=== PATIENT | female | born 1985 | race Caucasian/White ===

== ENCOUNTER 2017-05-15 18:02 | Emergency (ER) | payer OTHER, MEDICAID | END 2017-05-15 18:37 | disposition home or self-care (01) | LOC: E/R 18:02 | DX: R22.32 Localized swelling, mass and lump, left upper limb (principal) | CPT/HCPCS: 99283; Z7502 ==

== ENCOUNTER 2017-11-05 13:49 | Emergency (ER) | payer SELFPAY, OTHER | END 2017-11-05 16:17 | disposition left against medical advice (07) | LOC: FTE 13:49 | DX: Z53.21 Procedure and treatment not carried out due to patient leaving prior to being seen by health care provider (principal) ==